=== PATIENT | male | born 1950 | race Caucasian/White ===

== ENCOUNTER → 2018-01-13 | Outpatient (CLI) | payer MEDICARE, OTHER ==
[~2018-01-13] MED LIST: ACTONEL30 MG PO; BENICAR HCT 401 EACH PO; CALCIUM; CRESTOR10 MG PO; FELODIPINE ER10 MG PO; FISH OIL 1,001000 MG PO; IRON; MULTIVITAMINS; OMEPRAZOLE20 MG PO; VITAMIN E400 UNIT PO; VITAMINC500 PO
== END | disposition home or self-care (01) ==
LOC: M.ULTRA 07:53
DX: E04.1 Nontoxic single thyroid nodule (principal); R89.8 Other abnormal findings in specimens from other organs, systems and tissues; Z88.8 Allergy status to other drugs, medicaments and biological substances; Z79.899 Other long term (current) drug therapy